=== PATIENT | male | born 1960 | race Caucasian/White ===

== ENCOUNTER 2016-04-08 22:59 | Emergency (ER) | payer OTHER ==
--- NOTE | 2016-04-09 11:26 | ED ORDER SUMMARY ---
..... Patient: YULIET ZIEGLER OrderSheet [facility] VisitID: [id number] [address] [place] [address] 55y, M Registration Date/Time: 04/08/2016 ORDER SHEET Weight: 72.5 kg (estimated) Allergies: Unable to Obtain GENERAL ORDERS: CBC w Diff Urgent (23:48 04/08/2016 Vickie Brothers) (Ack 23:50 LMuller) (0:29 JBullard R.N.) CMP Urgent (23:48 04/08/2016 Vickie Brothers) (Ack 23:50 LMuller) (0:29 JBullard R.N.) UA-Culture if indicated Urgent (23:48 04/08/2016 Vickie Brothers) (Ack 23:50 LMuller) (0:29 JBullard R.N.) Urine Drug Screen Urgent (23:48 04/08/2016 Vickie Brothers) (Ack 23:50 LMuller) (0:29 JBullard R.N.) Ethyl Alcohol Urgent (23:48 04/08/2016 Vickie Brothers) (Ack 23:50 LMuller) (0:29 JBullard R.N.) Acetaminophen Level Urgent (23:54 04/08/2016 Vickie Brothers) (Ack 23:55 LMuller) (0:29 JBullard R.N.) Salicylate Level Urgent (23:54 04/08/2016 Vickie Brothers) (Ack 23:55 LMuller) (0:29 JBullard R.N.) MEDICATION ORDERS: IV FLUIDS: IV Saline Lock (23:48 04/08/2016 Vickie Brothers) (0:30 JBullard R.N.) ORDER SHEET NOTES: [Electronically signed by Sigrid Hernandez R.N. (19:00 04/09/2016)] [Electronically signed by Kishore Villalobos Dr. (21:42 04/12/2016)] [Electronically locked/signed by Sigrid Hernandez R.N. (19:00 04/09/2016)]
--- NOTE | 2016-04-09 11:26 | ED ORDER SUMMARY ---
..... Patient: YULIET ZIEGLER OrderSheet [facility] VisitID: [id number] [address] [place] [address] 55y, M Registration Date/Time: 04/08/2016 ORDER SHEET Weight: 72.5 kg (estimated) Allergies: Unable to Obtain GENERAL ORDERS: CBC w Diff Urgent (23:48 04/08/2016 Vickie Brothers) (Ack 23:50 LMuller) (0:29 JBullard R.N.) CMP Urgent (23:48 04/08/2016 Vickie Brothers) (Ack 23:50 LMuller) (0:29 JBullard R.N.) UA-Culture if indicated Urgent (23:48 04/08/2016 Vickie Brothers) (Ack 23:50 LMuller) (0:29 JBullard R.N.) Urine Drug Screen Urgent (23:48 04/08/2016 Vickie Brothers) (Ack 23:50 LMuller) (0:29 JBullard R.N.) Ethyl Alcohol Urgent (23:48 04/08/2016 Vickie Brothers) (Ack 23:50 LMuller) (0:29 JBullard R.N.) Acetaminophen Level Urgent (23:54 04/08/2016 Vickie Brothers) (Ack 23:55 LMuller) (0:29 JBullard R.N.) Salicylate Level Urgent (23:54 04/08/2016 Vickie Brothers) (Ack 23:55 LMuller) (0:29 JBullard R.N.) MEDICATION ORDERS: IV FLUIDS: IV Saline Lock (23:48 04/08/2016 Vickie Brothers) (0:30 JBullard R.N.) ORDER SHEET NOTES: [Electronically signed by Sigrid Hernandez R.N. (19:00 04/09/2016)] [Electronically signed by Kishore Villalobos Dr. (21:42 04/12/2016)] [Electronically locked/signed by Sigrid Hernandez R.N. (19:00 04/09/2016)]
--- NOTE | 2016-04-09 11:26 | ED CLINICAL REPORT ---
Clinical Report - Physicians/Mid Levels [facility] [address] [place] [address] 04/08/2016 22:59 Patient: YULIET ZIEGLER Time Seen: 23:08; initial patient contact. Arrived- By ambulance. In custody of police. Historian- EMS personnel. History limited by altered mental status and poor cooperation. Physical Exam limited by altered mental status and poor cooperation. HISTORY OF PRESENT ILLNESS Chief Complaint: BEHAVIOR CHANGE. This started just prior to arrival. The patient was found wandering. Has exhibited unusual behavior. No suicidal thoughts or self-injury inflicted. The symptoms are described as moderate. Additional history - Was seen here ~ 2 1/2 weeks ago for similar, pt was uncooperative, but admitted at that time wanting to walk in front of a train wanting to kill hiself. Nl lab w/u including u tox and CT of head. Was admitted to psych. REVIEW OF SYSTEMS No headache or suicidal thoughts. He has had chills and altered mental status. Pt selectively answering questions. All systems otherwise negative, except as recorded above. PAST HISTORY ( Suicidal Adjustment D/O w/ depression). SOCIAL HISTORY Smoker - current status unknown. Alcohol use. Patient is a longstanding alcoholic. (Pt answers a lot). History of heavy drug use Pt answers : a lot". No social support. No place to stay. FAMILY HISTORY Unable to obtain family medical history due to patient's altered mental status. ADDITIONAL NOTES The nursing notes have been reviewed with agreement regarding the chief complaint, PMH and patient medications and allergies. PHYSICAL EXAM Vital Signs: 04/08/2016 23:37 BP: 127/87. HR: 78. RR: 18. O2 saturation: 98%. Temp: 97 F. Pain level now: 0/10. Have been reviewed as normal. Appearance: Alert. Is disheveled and has poor hygiene. Patient is uncooperative. Eyes: Pupils equal, round and reactive to light. ENT: The mucous membranes are not dry. Neck: Normal inspection. Neck supple. No meningeal signs. CVS: Normal heart rate and rhythm. Heart sounds normal. Respiratory: Breath sounds normal. Chest nontender. Abdomen: Soft and nontender. Skin: Normal skin color. Cool skin. Extremities: No lower extremity edema. Psych / Neuro: Speech is repetitive and inappropriate. The patient is disoriented to person and to place. No apparent delusions. Denies suicidal thoughts. Patient expresses no phobias. He does not appear to understand his illness. No apparent auditory hallucinations, visual hallucinations or tactile hallucinations. LABS, X-RAYS, AND EKG Laboratory Tests: UA-Culture if indicated: (AIRAM: 04/08/2016 00:25) ( [facility]12) Final results Test Result Flag Units (Reference) URINE COLOR YELLOW URINE APPEARANCE CLEAR URINE GLUCOSE NEGATIVE (NEGATIVE) URINE BILIRUBIN NEGATIVE (NEGATIVE) URINE BILIRUBIN ICTOTEST NEGATIVE (NEGATIVE) URINE KETONE 3+ (NEGATIVE) URINE SPECIFIC GRAVITY 1.025 (1.010-1.030) URINE PH 7.0 (5.0-8.0) URINE PROTEIN 1+ (NEGATIVE) URINE UROBILINOGEN 1.0 EU/dL (0.2-1.0) URINE NITRITE NEGATIVE (NEGATIVE) URINE BLOOD NEGATIVE (NEGATIVE) URINE LEUK ESTERASE NEGATIVE (NEGATIVE) URINE RBC 0-1 rbc/hpf (0-1) URINE WBC 1-3 wbc/hpf (0-1) URINE EPITHELIAL CELLS NONE SEEN EPI/hpf (0-5) URINE BACTERIA NONE SEEN (NONE SEEN) URINE COMMENT CULT NOT INDICATED URINE CULTURES ARE SET-UP BASED ON THE FOLLOWING CRITERIA:POSITIVE NITRITEPOSITIVE LEUKOCYTE ESTERASEGREATER THAN 10 WHITE BLOOD CELLSMODERATE (2+) OR GREATER BACTERIA Salicylate Level: (AIRAM: 04/08/2016 00:15) ( [facility] 04/09/2016 00:57) Final results Test Result Flag Units (Reference) SALICYLATE <2.8 L mg/dL (2.8-20) Acetaminophen Level: (AIRAM: 04/08/2016 00:15) ( [facility] 04/09/2016 00:57) Final results Test Result Flag Units (Reference) ACETAMINOPHEN < 2.0 L ug/mL (10-30) Urine Drug Screen: (AIRAM: 04/08/2016 00:25) ( MsgRcvd 04/09/2016 00:53) Final results Test Result Flag Units (Reference) AMPHETAMINE/METHAMPHETAMINE NEGATIVE (NEGATIVE) BARBITURATE NEGATIVE (NEGATIVE) BENZODIAZEPINE NEGATIVE (NEGATIVE) CANNABINOID NEGATIVE (NEGATIVE) COCAINE NEGATIVE (NEGATIVE) ECSTASY NEGATIVE (NEGATIVE) METHADONE NEGATIVE (NEGATIVE) OPIATE NEGATIVE (NEGATIVE) The urine drug screen is a qualitative screening test fordrug overdose and abuse. All screen results should beconsidered as presumptive.Drugs screened for are as follows:BenzodiazepinesCocaineAmphetamines/MetamphetaminesTHC (Tetrahydrocannabinol)OpiatesBarbituratesEcstasyMethadonePositive results are unconfirmed. For confirmation, notifythe lab for the specimen to be sent to the reference lab.All confirmations must be performed by a differentmethodology.The ingestion of natural herbal and plant productscontaining Ephedra/Ephedra metabolites can produce in urineone or more substances capable of cross reacting withamphetamine/methamphetamine immunoassays. These testsprovide a preliminary result only. A more specificalternative chemical method must be used to obtain aconfirmed analytical result. CMP: (AIRAM: 04/08/2016 00:15) ( MsgRcvd 04/09/2016 00:37) Final results Test Result Flag Units (Reference) GLUCOSE 107 mg/dL (70-110) BUN 19 H mg/dL (7-18) CREATININE 0.9 mg/dL (0.6-1.3) Estimated GFR >60 mL/min Estimated GFR- >60 mL/min Note: Persistent reduction over 3 months in eGFR<60 mL/min/1.73 m2 defines CKD. Patients with eGFR values>=60 mL/min/1.73 m2 may also have CKD if evidence ofpersistent proteinuria. Additional information may be foundat www.kidney.org. SODIUM 144 mmol/L (136-145) POTASSIUM 3.2 L mmol/L (3.5-5.1) CHLORIDE 105 mmol/L (98-107) CARBON DIOXIDE 21 mmol/L (21-32) CALCIUM 9.9 mg/dL (8.5-10.1) TOTAL PROTEIN 7.8 g/dL (6.4-8.2) ALBUMIN 4.6 g/dL (3.3-5.0) BILIRUBIN, TOTAL 1.4 H mg/dL (0.0-1.0) ALKALINE PHOSPHATASE 52 U/L (46-116) AST (SGOT) 17 U/L (15-37) ALT (SGPT) 19 U/L (12-78) ETHYL ALCOHOL <3 L mg/dL (3-10) . PROGRESS AND PROCEDURES Course of Care: 09:49 04/09/16. Pt signed out to Dr. Yanes. [facility] here now to evaluate pt. Disposition: Transferred. [place] psych. CLINICAL IMPRESSION Acute paranoid psychosis with paranoia. INSTRUCTIONS Follow-up: Screening today revealed the patient's blood pressure to be in the hypertensive range. The patient should follow up with a primary care provider for blood pressure management. The patient was transferred and blood pressure will be managed by the receiving provider. (Electronically signed by Kishore Villalobos Dr. 04/12/2016 21:42)
--- NOTE | 2016-04-09 11:26 | ED NURSING NOTES ---
Clinical Report - Nurses [place] [address] [place] [address] 04/08/2016 22:59 Patient: YULIET ZIEGLER TRIAGE Triage time 2305. Acuity: LEVEL 2. Chief Complaint: ANXIETY, HALLUCINATIONS and BIZARRE BEHAVIOR. --23:16 Damian Lebron R.N. Weight: 72.5 kg estimated. Height/Length: 67 inches Estimated. BMI: 25.1. --23:19 Damian Lebron R.N. Allergies Unable to Obtain. --18:59 Sigrid Hernandez R.N. History Arrived by EMS. Historian: police and EMS. Onset: just prior to arrival. ( pt found walking down [address] shivering with pants pulled down around his ankles. pt refusing to answer most questions but is a&ox4 when he does answer. pt mostly staring off into space whispering under his breath to no one.). 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 See EMS report. SOCIAL HX: Smoker - current status unknown. FALL RISK ASSESSMENT: Fall risk assessment completed. No fall risk identified. NUTRITIONAL RISK ASSESSMENT: The nutritional risk assessment revealed no deficiencies. FUNCTIONAL ASSESSMENT: Functional assessment: no impairments noted. LEARNING NEEDS ASSESSMENT: The learning needs assessment revealed no barriers. SKIN INTEGRITY ASSESSMENT: Skin integrity risk assessment completed. No skin integrity risk identified. --23:16 Damian Lebron R.N. PHYSICAL ASSESSMENT GENERAL / NEURO / PSYCH: Appears anxious. He is alert and unresponsive, appears comfortable, shows no apparent trauma and has normal color for race. He is pink and well hydrated, has poor eye contact and no smile response and exhibits poor consolability. He appears flat affect, is well nourished and bedridden, appearance is consistent with stated age and appears unkempt. He is sitting up and not vomiting. He has no indications of abuse. The patient is disoriented to place. Poor eye contact. Affect appears flat. RESPIRATORY: Respirations not labored. Breath sounds within normal limits. CVS: Normal heart rate and rhythm. Capillary refill less than 2 seconds. GI / : Abdomen soft and nontender. Bowel sounds within normal limits. SKIN: Skin intact. Skin is warm and dry. Skin color is within normal limits. --23:19 Damian Lebron R.N. NURSING PROGRESS NOTES Patient gowned. Head of bed elevated. Reassurance given. Side rails up x 2. Bed placed in lowest position. Brakes of bed on. --23:20 Damian Lebron R.N. 00:15 04/09/2016 Site #1 started via IV in the left upper arm with an 18g angiocath, with aseptic technique and good blood return; one attempt. Blood drawn: rainbow set. Labeled in the presence of the patient and sent to the lab. Saline lock flushed with saline. --00:30 Damian Lebron R.N. ( PAT was called, told that Mae would be out in a while that she just started a evaluation in [place].). --01:09 Eliza Swenson 07:48 04/09/16. BP: 150/92. HR: 72. RR: 12. O2 saturation: 100% on room air. Temp: 98.5 F (oral). --07:56 Sigrid Hernandez R.N. 07:56 04/09/16. The patient reports no complaints and he is calm and resting quietly. --07:56 Sigrid Hernandez R.N. 08:16 04/09/16. ( Pt given juice. Breakfast tray ordered.). --08:16 Sigrid Hernandez R.N. ( Pt offered toilet. Pt refused at this time. Pt given urinal. Pt requested "sani wipes". Pt given bath wipes.). --10:42 Sigrid Hernandez R.N. 10:51 04/09/16. ( Pt ambulated to BR and back to room with this RN. Pt given more bath wipes, coffee, and water. Pt refused more food at this time.). --10:51 Sigrid Hernandez R.N. 11:30 04/09/16. ( Pt's friend Olivia in ED asking for staff to witness pt signing POA to her. This RN and other staff informed Olivia we would not witness him sign any papers at this time because he is not capable of making those decisions right now. 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 On her way out, Olivia asked this RN "Who told you you couldn't sign as a witness?" I stated to her I would not witness or sign any legal documents for her. Olivia then left the ED with pt's keys and license.). --11:30 Sigrid Hernandez R.N. ( Pt given lunch tray.). --12:44 Sigrid Hernandez R.N. 12:55 04/09/16. BP: 126/106. HR: 102. O2 saturation: 98%. --12:55 Laura Hayden, SAM Tech1 ( Eating Lunch, pacing in the room. Pt comes out of room, needs redirection back to the room.). --14:29 Nabila Rios R.N. DISPOSITION / DISCHARGE 15:58 04/09/16. BP: 143/83. HR: 89. RR: 20. O2 saturation: 100% on room air. Temp: 97.8 F. Pain level now: 0/10. --15:59 Sigrid Hernandez R.N. Departure time: 1600 Apr 09 2016. Transferred. Summary of care provided to EMS ([facility], [place]). Transported via ambulance by EMS and transport team. Report was given to a nurse via a phone call. Report included patient's care, treatment, medications, reviewed medication reconcilliation, and condition (including any recent changes or anticipated changes). All questions were answered. Patient's personal items include: shirt, pants, coat, socks, shoes, glasses and wallet, blanket; items were placed in belongings bag and transported with the patient. --18:58 Sigrid Hernandez R.N. 16:00 04/09/2016 Site #[address] upon transfer; patent, no pain and no signs of infection or infiltration. Flushed with 10 mL saline; flushes easily. --18:58 Sigrid Hernandez R.N. Locked/Released at 04/09/2016 19:00 by Sigrid Hernandez R.N.
--- NOTE | 2016-04-09 11:26 | ED CLINICAL REPORT ---
Clinical Report - Physicians/Mid Levels [facility] [address] [place] [address] 04/08/2016 22:59 Patient: YULIET ZIEGLER Time Seen: 23:08; initial patient contact. Arrived- By ambulance. In custody of police. Historian- EMS personnel. History limited by altered mental status and poor cooperation. Physical Exam limited by altered mental status and poor cooperation. HISTORY OF PRESENT ILLNESS Chief Complaint: BEHAVIOR CHANGE. This started just prior to arrival. The patient was found wandering. Has exhibited unusual behavior. No suicidal thoughts or self-injury inflicted. The symptoms are described as moderate. Additional history - Was seen here ~ 2 1/2 weeks ago for similar, pt was uncooperative, but admitted at that time wanting to walk in front of a train wanting to kill hiself. Nl lab w/u including u tox and CT of head. Was admitted to psych. REVIEW OF SYSTEMS No headache or suicidal thoughts. He has had chills and altered mental status. Pt selectively answering questions. All systems otherwise negative, except as recorded above. PAST HISTORY ( Suicidal Adjustment D/O w/ depression). SOCIAL HISTORY Smoker - current status unknown. Alcohol use. Patient is a longstanding alcoholic. (Pt answers a lot). History of heavy drug use Pt answers : a lot". No social support. No place to stay. FAMILY HISTORY Unable to obtain family medical history due to patient's altered mental status. ADDITIONAL NOTES The nursing notes have been reviewed with agreement regarding the chief complaint, PMH and patient medications and allergies. PHYSICAL EXAM Vital Signs: 04/08/2016 23:37 BP: 127/87. HR: 78. RR: 18. O2 saturation: 98%. Temp: 97 F. Pain level now: 0/10. Have been reviewed as normal. Appearance: Alert. Is disheveled and has poor hygiene. Patient is uncooperative. Eyes: Pupils equal, round and reactive to light. ENT: The mucous membranes are not dry. Neck: Normal inspection. Neck supple. No meningeal signs. CVS: Normal heart rate and rhythm. Heart sounds normal. Respiratory: Breath sounds normal. Chest nontender. Abdomen: Soft and nontender. Skin: Normal skin color. Cool skin. Extremities: No lower extremity edema. Psych / Neuro: Speech is repetitive and inappropriate. The patient is disoriented to person and to place. No apparent delusions. Denies suicidal thoughts. Patient expresses no phobias. He does not appear to understand his illness. No apparent auditory hallucinations, visual hallucinations or tactile hallucinations. LABS, X-RAYS, AND EKG Laboratory Tests: UA-Culture if indicated: (AIRAM: 04/08/2016 00:25) ( [facility] 04/09/2016 01:12) Final results Test Result Flag Units (Reference) URINE COLOR YELLOW URINE APPEARANCE CLEAR URINE GLUCOSE NEGATIVE (NEGATIVE) URINE BILIRUBIN NEGATIVE (NEGATIVE) URINE BILIRUBIN ICTOTEST NEGATIVE (NEGATIVE) URINE KETONE 3+ (NEGATIVE) URINE SPECIFIC GRAVITY 1.025 (1.010-1.030) URINE PH 7.0 (5.0-8.0) URINE PROTEIN 1+ (NEGATIVE) URINE UROBILINOGEN 1.0 EU/dL (0.2-1.0) URINE NITRITE NEGATIVE (NEGATIVE) URINE BLOOD NEGATIVE (NEGATIVE) URINE LEUK ESTERASE NEGATIVE (NEGATIVE) URINE RBC 0-1 rbc/hpf (0-1) URINE WBC 1-3 wbc/hpf (0-1) URINE EPITHELIAL CELLS NONE SEEN EPI/hpf (0-5) URINE BACTERIA NONE SEEN (NONE SEEN) URINE COMMENT CULT NOT INDICATED URINE CULTURES ARE SET-UP BASED ON THE FOLLOWING CRITERIA:POSITIVE NITRITEPOSITIVE LEUKOCYTE ESTERASEGREATER THAN 10 WHITE BLOOD CELLSMODERATE (2+) OR GREATER BACTERIA Salicylate Level: (AIRAM: 04/08/2016 00:15) ( [facility] 04/09/2016 00:57) Final results Test Result Flag Units (Reference) SALICYLATE <2.8 L mg/dL (2.8-20) Acetaminophen Level: (AIRAM: 04/08/2016 00:15) ( [facility] 04/09/2016 00:57) Final results Test Result Flag Units (Reference) ACETAMINOPHEN < 2.0 L ug/mL (10-30) Urine Drug Screen: (AIRAM: 04/08/2016 00:25) ( MsgRcvd 04/09/2016 00:53) Final results Test Result Flag Units (Reference) AMPHETAMINE/METHAMPHETAMINE NEGATIVE (NEGATIVE) BARBITURATE NEGATIVE (NEGATIVE) BENZODIAZEPINE NEGATIVE (NEGATIVE) CANNABINOID NEGATIVE (NEGATIVE) COCAINE NEGATIVE (NEGATIVE) ECSTASY NEGATIVE (NEGATIVE) METHADONE NEGATIVE (NEGATIVE) OPIATE NEGATIVE (NEGATIVE) The urine drug screen is a qualitative screening test fordrug overdose and abuse. All screen results should beconsidered as presumptive.Drugs screened for are as follows:BenzodiazepinesCocaineAmphetamines/MetamphetaminesTHC (Tetrahydrocannabinol)OpiatesBarbituratesEcstasyMethadonePositive results are unconfirmed. For confirmation, notifythe lab for the specimen to be sent to the reference lab.All confirmations must be performed by a differentmethodology.The ingestion of natural herbal and plant productscontaining Ephedra/Ephedra metabolites can produce in urineone or more substances capable of cross reacting withamphetamine/methamphetamine immunoassays. These testsprovide a preliminary result only. A more specificalternative chemical method must be used to obtain aconfirmed analytical result. CMP: (AIRAM: 04/08/2016 00:15) ( MsgRcvd 04/09/2016 00:37) Final results Test Result Flag Units (Reference) GLUCOSE 107 mg/dL (70-110) BUN 19 H mg/dL (7-18) CREATININE 0.9 mg/dL (0.6-1.3) Estimated GFR >60 mL/min Estimated GFR- >60 mL/min Note: Persistent reduction over 3 months in eGFR<60 mL/min/1.73 m2 defines CKD. Patients with eGFR values>=60 mL/min/1.73 m2 may also have CKD if evidence ofpersistent proteinuria. Additional information may be foundat www.kidney.org. SODIUM 144 mmol/L (136-145) POTASSIUM 3.2 L mmol/L (3.5-5.1) CHLORIDE 105 mmol/L (98-107) CARBON DIOXIDE 21 mmol/L (21-32) CALCIUM 9.9 mg/dL (8.5-10.1) TOTAL PROTEIN 7.8 g/dL (6.4-8.2) ALBUMIN 4.6 g/dL (3.3-5.0) BILIRUBIN, TOTAL 1.4 H mg/dL (0.0-1.0) ALKALINE PHOSPHATASE 52 U/L (46-116) AST (SGOT) 17 U/L (15-37) ALT (SGPT) 19 U/L (12-78) ETHYL ALCOHOL <3 L mg/dL (3-10) . PROGRESS AND PROCEDURES Course of Care: 09:49 04/09/16. Pt signed out to Dr. Yanes. [facility] here now to evaluate pt. Disposition: Transferred. [place] psych. CLINICAL IMPRESSION Acute paranoid psychosis with paranoia. INSTRUCTIONS Follow-up: Screening today revealed the patient's blood pressure to be in the hypertensive range. The patient should follow up with a primary care provider for blood pressure management. The patient was transferred and blood pressure will be managed by the receiving provider. (Electronically signed by Kishore Villalobos Dr. 04/12/2016 21:42)
--- NOTE | 2016-04-09 11:26 | ED NURSING NOTES ---
Clinical Report - Nurses [place] [address] [place] [address] 04/08/2016 22:59 Patient: YULIET ZIEGLER TRIAGE Triage time 2305. Acuity: LEVEL 2. Chief Complaint: ANXIETY, HALLUCINATIONS and BIZARRE BEHAVIOR. --23:16 Damian Lebron R.N. Weight: 72.5 kg estimated. Height/Length: 67 inches Estimated. BMI: 25.1. --23:19 Damian Lebron R.N. Allergies Unable to Obtain. --18:59 Sigrid Hernandez R.N. History Arrived by EMS. Historian: police and EMS. Onset: just prior to arrival. ( pt found walking down [address] shivering with pants pulled down around his ankles. pt refusing to answer most questions but is a&ox4 when he does answer. pt mostly staring off into space whispering under his breath to no one.). Treatment BUNCH MAKER: None. See EMS report. SOCIAL HX: Smoker - current status unknown. FALL RISK ASSESSMENT: Fall risk assessment completed. No fall risk identified. NUTRITIONAL RISK ASSESSMENT: The nutritional risk assessment revealed no deficiencies. FUNCTIONAL ASSESSMENT: Functional assessment: no impairments noted. LEARNING NEEDS ASSESSMENT: The learning needs assessment revealed no barriers. SKIN INTEGRITY ASSESSMENT: Skin integrity risk assessment completed. No skin integrity risk identified. --23:16 Damian Lebron R.N. PHYSICAL ASSESSMENT GENERAL / NEURO / PSYCH: Appears anxious. He is alert and unresponsive, appears comfortable, shows no apparent trauma and has normal color for race. He is pink and well hydrated, has poor eye contact and no smile response and exhibits poor consolability. He appears flat affect, is well nourished and bedridden, appearance is consistent with stated age and appears unkempt. He is sitting up and not vomiting. He has no indications of abuse. The patient is disoriented to place. Poor eye contact. Affect appears flat. RESPIRATORY: Respirations not labored. Breath sounds within normal limits. CVS: Normal heart rate and rhythm. Capillary refill less than 2 seconds. GI / : Abdomen soft and nontender. Bowel sounds within normal limits. SKIN: Skin intact. Skin is warm and dry. Skin color is within normal limits. --23:19 Damian Lebron R.N. NURSING PROGRESS NOTES Patient gowned. Head of bed elevated. Reassurance given. Side rails up x 2. Bed placed in lowest position. Brakes of bed on. --23:20 Damian Lebron R.N. 00:15 04/09/2016 Site #1 started via IV in the left upper arm with an 18g angiocath, with aseptic technique and good blood return; one attempt. Blood drawn: rainbow set. Labeled in the presence of the patient and sent to the lab. Saline lock flushed with saline. --00:30 Damian Lebron R.N. ( PAT was called, told that Mae would be out in a while that she just started a evaluation in [place].). --01:09 Eliza Swenson 07:48 04/09/16. BP: 150/92. HR: 72. RR: 12. O2 saturation: 100% on room air. Temp: 98.5 F (oral). --07:56 Sigrid Hernandez R.N. 07:56 04/09/16. The patient reports no complaints and he is calm and resting quietly. --07:56 Sigrid Hernandez R.N. 08:16 04/09/16. ( Pt given juice. Breakfast tray ordered.). --08:16 Sigrid Hernandez R.N. ( Pt offered toilet. Pt refused at this time. Pt given urinal. Pt requested "sani wipes". Pt given bath wipes.). --10:42 Sigrid Hernandez R.N. 10:51 04/09/16. ( Pt ambulated to BR and back to room with this RN. Pt given more bath wipes, coffee, and water. Pt refused more food at this time.). --10:51 Sigrid Hernandez R.N. 11:30 04/09/16. ( Pt's friend Olivia in ED asking for staff to witness pt signing POA to her. This RN and other staff informed Olivia we would not witness him sign any papers at this time because he is not capable of making those decisions right now. 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 On her way out, Olivia asked this RN "Who told you you couldn't sign as a witness?" I stated to her I would not witness or sign any legal documents for her. Olivia then left the ED with pt's keys and license.). --11:30 Sigrid Hernandez R.N. ( Pt given lunch tray.). --12:44 Sigrid Hernandez R.N. 12:55 04/09/16. BP: 126/106. HR: 102. O2 saturation: 98%. --12:55 Laura Hayden, SAM Tech1 ( Eating Lunch, pacing in the room. Pt comes out of room, needs redirection back to the room.). --14:29 Nabila Rios R.N. DISPOSITION / DISCHARGE 15:58 04/09/16. BP: 143/83. HR: 89. RR: 20. O2 saturation: 100% on room air. Temp: 97.8 F. Pain level now: 0/10. --15:59 Sigrid Hernandez R.N. Departure time: 1600 Apr 09 2016. Transferred. Summary of care provided to EMS ([facility], [place]). Transported via ambulance by EMS and transport team. Report was given to a nurse via a phone call. Report included patient's care, treatment, medications, reviewed medication reconcilliation, and condition (including any recent changes or anticipated changes). All questions were answered. Patient's personal items include: shirt, pants, coat, socks, shoes, glasses and wallet, blanket; items were placed in belongings bag and transported with the patient. --18:58 Sigrid Hernandez R.N. 16:00 04/09/2016 Site #[address] upon transfer; patent, no pain and no signs of infection or infiltration. Flushed with 10 mL saline; flushes easily. --18:58 Sigrid Hernandez R.N. Locked/Released at 04/09/2016 19:00 by Sigrid Hernandez R.N.
--- NOTE | 2016-04-12 21:42 | ED DISCHARGE INSTRUCTIONS ---
Patient: YULIET ZIEGLER General Instructions [facility] VisitID: [id number] [address] [place] [address] 55y, M Registration Date/Time: 04/08/2016 Acute paranoid psychosis with paranoia. INSTRUCTIONS Follow-up: Screening today revealed the patient's blood pressure to be in the hypertensive range. The patient should follow up with a primary care provider for blood pressure management. The patient was transferred and blood pressure will be managed by the receiving provider. (Electronically signed by Kishore Villalobos Dr. 04/12/2016 21:42)
--- NOTE | 2016-04-12 21:42 | ED MAR SUMMARY ---
..... Medication Administration Record [facility] [address] [place], [place] [id number] Patient: YULIET ZIEGLER Stefan Visit ID: [id number] 55y, M Weight: 72.5 kg Height/Length: 67 in BMI: 25.1 ALLERGIES: Unable to Obtain
--- NOTE | 2016-04-12 21:42 | ED MAR SUMMARY ---
..... Medication Administration Record [facility] [address] [place], [place] [id number] Patient: YULIET ZIEGLER Stefan Visit ID: [id number] 55y, M Weight: 72.5 kg Height/Length: 67 in BMI: 25.1 ALLERGIES: Unable to Obtain
--- NOTE | 2016-04-12 21:42 | ED MED RECONCILIATION SUMMARY ---
Patient: YULIET ZIEGLER Medication Reconciliation Report [facility] VisitID: [id number] [address] [place] [address] 55y, M Registration Date/Time: 04/08/2016 Weight: 72.5 kg Height/Length: 67 in. BMI: 25.1 ALLERGIES: Unable to Obtain The patient's Home Medications are listed below: Not obtained. The source(s) of the original Home Medication information: Not obtained. The following Medications were given to the patient in the Emergency Department: None. The following Medications were prescribed to the patient: None.
--- NOTE | 2016-04-12 21:42 | ED MED RECONCILIATION SUMMARY ---
Patient: YULIET ZIEGLER Medication Reconciliation Report [facility] VisitID: [id number] [address] [place] [address] 55y, M Registration Date/Time: 04/08/2016 Weight: 72.5 kg Height/Length: 67 in. BMI: 25.1 ALLERGIES: Unable to Obtain The patient's Home Medications are listed below: Not obtained. The source(s) of the original Home Medication information: Not obtained. The following Medications were given to the patient in the Emergency Department: None. The following Medications were prescribed to the patient: None.
--- NOTE | 2016-04-12 21:42 | ED DISCHARGE INSTRUCTIONS ---
Patient: YULIET ZIEGLER General Instructions [facility] VisitID: [id number] [address] [place] [address] 55y, M Registration Date/Time: 04/08/2016 Acute paranoid psychosis with paranoia. INSTRUCTIONS Follow-up: Screening today revealed the patient's blood pressure to be in the hypertensive range. The patient should follow up with a primary care provider for blood pressure management. The patient was transferred and blood pressure will be managed by the receiving provider. (Electronically signed by Kishore Villalobos Dr. 04/12/2016 21:42)
== END 2016-04-09 16:00 | disposition home or self-care (01) ==
LOC: ED SRH 22:59
DX: F23 Brief psychotic disorder (principal)
CPT/HCPCS: 90004; 90100; 92010; 92760; 92761; 92762; 92763; 92764; 92765; 92766; 92767; 92780; 95059; 97000